=== PATIENT | male | born 1960 | race Caucasian/White ===

== ENCOUNTER → 2017-05-12 06:26 | Day surgery (SDC) | payer MEDICARE, MEDICAID ==
[~2017-05-12 06:26] MED LIST: Buffered Lidocaine 0.9% SYRIN* 5 ML/SYR SYRINGE INTRADERM ONE; Midazolam* 1 MG/ML 2 ML VIAL (2 MG) ONE; Morphine INJ* 10 MG/ML 1 ML CARPUJECT ONE
[2017-05-12 08:05] VITALS: BP 131/73
--- NOTE | 2017-05-12 08:13 | RAD ---
INDICATION: Internal derangement of the left knee. COMPARISON: Comparison is made with a prior MRI of the left knee from [email or web address] and a prior x-ray study of the left knee from January 31, 2013. TECHNIQUE: Axial, sagittal and coronal T1 and T2-weighted images of the left knee were obtained. FINDINGS: The bones are in normal alignment. No fracture or joint effusion is seen. The medial and lateral menisci appear intact without evidence for tear. The anterior and posterior cruciate ligaments appear intact. The medial and lateral collateral ligaments appear intact. The extensor mechanism appears intact. The patellar hyaline cartilage appears intact. IMPRESSION: NEGATIVE EXAM.
== END | disposition home or self-care (01) ==
LOC: OR 06:26
PROVIDERS: ATTEND Physician Assistant
DX: M23.8X2 Other internal derangements of left knee (principal); M25.562 Pain in left knee; E11.9 Type 2 diabetes mellitus without complications; Z79.4 Long term (current) use of insulin; F41.1 Generalized anxiety disorder; I10 Essential (primary) hypertension; E87.6 Hypokalemia; F17.210 Nicotine dependence, cigarettes, uncomplicated
CPT/HCPCS: J2250; J2270

== ENCOUNTER 2017-10-17 15:01 | Emergency (ER) | payer MEDICARE, MEDICAID ==
[2017-10-17] MEDS ORDERED: HYDROmorphone INJ* 2 MG/ML CARPUJECT SYRINGE IV SLOW PU ONE (16:18)
[2017-10-17] MEDS ORDERED: Ondansetron ODT TAB* 4 MG PO ONE (16:18)
[2017-10-17 16:39] LABS: ABS Basophils 0 10^3/ul (0-0.2); ABS Eosinophils 0.1 10^3/ul (0-0.6); ABS Lymphocytes 1.3 10^3/ul (1.0-4.8); ABS Monocytes 0.6 10^3/ul (0-0.8); ABS Neutrophils 3.9 10^3/ul (1.5-7.7); ABS Nucleated RBC 0 10^3/ul; Eosinophil % 1.6 % (0-6); Hematocrit 33 % (42-52); Hemoglobin 11.4 g/dl (14.0-18.0); Mean Corpuscular HGB Conc 34 g/dl (31-36); Mean Corpuscular Hemoglobin 34 pg (27-31); Mean Corpuscular Volume 98 fL (80-94); Mean Platelet Volume 9.4 um3 (7.4-10.4); Nucleated Red Blood Cells % 0.1; Platelet Count 132 10^3/ul (150-450); Red Cell Distribution Width 15 % (10.5-15); White Blood Count 5.9 10^3/ul (3.5-10.8)
--- NOTE | 2017-10-17 17:02 | RAD ---
INDICATION: Dizziness. COMPARISON: Comparison is made with a prior study from May 10, 2009. TECHNIQUE: A portable view of the chest was obtained. FINDINGS: There is a central venous catheter on the right side entering from the right jugular approach. The catheter tip projects over the right atrium. The heart is within normal limits in size. The lungs are clear. No pleural effusion is seen. IMPRESSION: NO EVIDENCE FOR ACUTE DISEASE.
[2017-10-17 19:07] VITALS: BP 129/73
--- NOTE | 2017-10-31 07:27 | ED ---
Kelly Hand Simon, scribed for Andrés Mcfarland MD on 10/17/17 at 1824 . Complex/Multi-Sys Presentation - HPI Summary HPI Summary: This patient is a 57 year old M presenting to [facility] with a chief complaint of nausea and weakness since 1500. Pt endorses diaphoresis and non-stop chronic pain, claiming it is okay for a month then gets bad. He endorses PMHx bone cancer treated by Dr Corbin. Pt thighs and hips and into groin hurting the worse, where hes getting radiation therapy. Pt endorses SOB due to pain severity. Pt has radiation therapy tomorrow, and his last chemotherapy was in April. Pt denies recent fall. He endorses PMHx DVT, other blood clots. PMHx diabetes but states he has eaten today. 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, groin ) - Allergies/Home Medications Allergies/Adverse Reactions: Allergies Allergy/AdvReac Type Severity Reaction Status Date / Time bee venom protein (honey bee) Allergy Severe Anaphylatic Verified 10/17/17 15:51 Shock fentanyl Allergy Severe Altered Verified 10/17/17 15:51 Mental Status NSAIDS (Non-Steroidal Allergy Severe GI BLEED Verified 10/17/17 15:51 Anti-Inflamma varenicline Allergy Severe Hallucinati Verified 10/17/17 15:51 ons losartan Allergy Coughing Verified 10/17/17 15:51 DAIRY PRODUCT Allergy Intermediate GI Upset Uncoded 10/17/17 15:51 PERFUMES Allergy Intermediate RESPIRATORY Uncoded 10/17/17 15:51 IRRIATIONS Home Medications: Home Medications Aspirin EC TAB* [Ecotrin EC Low Dose 81 MG*] 81 mg PO DAILY 10/17/17 [History Confirmed 10/17/17] Cholecalciferol TAB* [Vitamin D TAB*] 5,000 unit PO QAM 10/17/17 [History Confirmed 10/17/17] Enoxaparin(*) [Lovenox(*)] 80 units SUBCUT Q12H 10/17/17 [History Confirmed 04/24] Folic Acid TAB* [Folvite TAB*] 1 mg PO DAILY 10/17/17 [History Confirmed ] HYDROcodone/ACETAMIN 5-325 MG* [[place] 5-325 TAB*] 1 - 2 tab PO Q6H PRN 10/17/17 [History Confirmed 10/17/17] Insulin GLARGINE(*) [Lantus(*)] 5 units SUBCUT BID 10/17/17 [History Confirmed 10/17/17] LORazepam TAB(*) [Ativan 1 MG TAB (*)] 1 mg PO Q8H PRN 10/17/17 [History Confirmed 10/17/17] Niacin ER TAB* [Niaspan ER TAB*] 1,000 mg PO BEDTIME 10/17/17 [History Confirmed 10/17/17] PMH/Surg Hx/FS Hx/Imm Hx Endocrine/Hematology History: Reports: Hx Diabetes Cardiovascular History: Reports: Hx Deep Vein Thrombosis, Hx Hypertension - HISTORY OF, NO LONGER NEEDS MEDICATION, Hx Rheumatic Fever - IN YOUR 20'S Denies: Hx Pacemaker/ICD Respiratory History: Reports: Hx Pulmonary Embolism - ON ENOXPARIN Denies: Hx Asthma GI History: Reports: Hx Gastroesophageal Reflux Disease History: Denies: Hx Renal Disease Sensory History: Denies: Hx Contacts or Glasses, Hx Hearing Aid Opthamlomology History: Denies: Hx Contacts or Glasses, Hx Legally Blind Neurological History: Reports: Hx Migraine - HISTORY OF Psychiatric History: Denies: Hx Panic Disorder - Cancer History Cancer Type, Location and Year: LUNG CANCER - W/ BONE MET Hx Chemotherapy: Yes - JUST FINISH Hx Radiation Therapy: Yes - Surgical History Surgery Procedure, Year, and Place: SEPTOPLASTY, LEFT SHOULDER RCT AND LABRAL REPAIR,LSP LAMINECTOMY, RT HAND CARPAL TUNNEL,APPENDECTOMY, LEFT KNEE MENISCUS REPAIR; L CARPAL TUNNEL. POWER PORT Hx Anesthesia Reactions: Yes - UNABLE TO USE FENTANYL - Immunization History Immunizations Up to Date: Yes Infectious Disease History: No Infectious Disease History: Denies: Traveled Outside the [place] in Last 30 Days - Family History Known Family History: Positive: Hypertension, Diabetes - Social History Alcohol Use: None Substance Use Type: Reports: None Smoking Status (MU): Light Every Day Tobacco Smoker Amount Used/How Often: 1/2PPD Have You Smoked in the Last Year: Yes Review of Systems Positive: Skin Diaphoresis. Negative: Fever, Chills Negative: Erythema Negative: Sore Throat Negative: Chest Pain Positive: Shortness Of Breath - Secondary to pain. Negative: Cough Positive: Nausea. Negative: Vomiting Negative: dysuria, hematuria Positive: Myalgia - diffuse. Negative: Edema Negative: Rash Neurological: Other - NEGATIVE: Dizziness Positive: Weakness All Other Systems Reviewed And Are Negative: Yes Physical Exam - Summary Physical Exam Summary: Constitutional: Well-developed, Well-nourished, Alert. (-) Distressed Skin: Warm, Dry HENT: Normocephalic; Atraumatic Eyes: Conjunctiva normal Neck: Musculoskeletal ROM normal neck. (-) JVD, (-) Stridor, (-) Tracheal deviation Cardio: Rhythm regular, rate normal, Heart sounds normal; Intact distal pulses; The pedal pulses are 2+ and symmetric. Radial pulses are 2+ and symmetric. (-) Murmur Pulmonary/Chest wall: Effort normal. (-) Respiratory distress, (-) Wheezes, (-) Rales Abd: Soft, (-), epigastric tenderness, (-) Distension, (-) Guarding, (-) Rebound Musculoskeletal: (-) Edema Lymph: (-) Cervical adenopathy Neuro: Alert, Oriented x3 Psych: Mood and affect Normal Triage Information Reviewed: Yes Vital Signs On Initial Exam: Initial Vitals Temp Pulse Resp BP Pulse Ox 98.3 F 88 16 120/86 100 10/17/17 15:03 10/17/17 15:03 10/17/17 15:03 10/17/17 15:03 10/17/17 15:03 Vital Signs Reviewed: Yes Diagnostics - Vital Signs Vital Signs Temp Pulse Resp BP Pulse Ox 10/17/17 15:03 98.3 F 88 16 120/86 100 - Laboratory Result Diagrams: 10/17/17 16:32 10/17/17 16:32 Lab Statement: Any lab studies that have been ordered have been reviewed, and results considered in the medical decision making process. - Radiology Chest XR Xray Interpretation: No Acute Changes Radiology Interpretation Completed By: Radiologist - No evidence for acute disease. Dr. Mcfarland has reviewed this report. - EKG 1623 Cardiac Rate: NL - 80 bpm EKG Rhythm: Sinus Rhythm ST Segment: Normal EKG Interpretation: No STEMI Re-Evaluation - Re-Evaluation First Eval Re-Evaluation Time: 18:40 Change: Improved Comment: Pt feels better and wants to go home. Complex Multi-Symp Course/Dx Course Of Treatment: This patient is a 57 year old M with a chief complaint of nausea and weakness since 1500. Pt endorses diaphoresis and non-stop chronic pain, claiming it is okay for a month then gets bad. He endorses PMHx bone cancer treated by Dr Corbin. Pt thighs and hips and into groin hurting the worse, where hes getting radiation therapy. Pt endorses SOB due to pain severity. Pt denies a recent fall. PMHx diabetes but states he has eaten today. Pt given dilaudid, zofran. (-) CXR. reevaluation 1 1839 - Diagnoses Provider Diagnoses: Chronic pain, Orthostasis Discharge - Sign-Out/Discharge Documenting (check all that apply): Discharge/Admit/Transfer - discharge - Discharge Plan Condition: Stable Disposition: HOME Patient Education Materials: Chronic Pain (ED) Referrals: Sonny HUGO,[place] [Primary Care Provider] - 3 Days Additional Instructions: RETURN TO ED FOR ANY NEW OR WORSENING SYMPTOMS. - Billing Disposition and Condition Condition: STABLE Disposition: Home The documentation as recorded by the Kelly joshi Simon accurately reflects the service I personally performed and the decisions made by me, Andrés Mcfarland MD.
== END 2017-10-17 19:02 | disposition home or self-care (01) ==
LOC: ED 15:01
DX: G89.29 Other chronic pain (principal); I95.1 Orthostatic hypotension; R06.02 Shortness of breath; R53.1 Weakness; C34.90 Malignant neoplasm of unspecified part of unspecified bronchus or lung; C79.51 Secondary malignant neoplasm of bone; E11.9 Type 2 diabetes mellitus without complications; F17.200 Nicotine dependence, unspecified, uncomplicated; Z79.4 Long term (current) use of insulin; Z79.01 Long term (current) use of anticoagulants; Z86.718 Personal history of other venous thrombosis and embolism; Z86.711 Personal history of pulmonary embolism; Z85.830 Personal history of malignant neoplasm of bone; Z92.21 Personal history of antineoplastic chemotherapy; Z88.8 Allergy status to other drugs, medicaments and biological substances; Z88.6 Allergy status to analgesic agent
CPT/HCPCS: 36415; 71045; 80053; 83605; 84484; 85025; 93005; 96374; 99283; A9270-GY; J1170